=== PATIENT | female | born 1965 | race Caucasian/White ===

== ENCOUNTER 2016-10-13 19:32 | Emergency (ER) | payer BC ==
[2016-10-13] MEDS ORDERED: HYDROcodone/Acetaminophen 10/325 mg Tablet ONE (20:44)
[2016-10-13] MEDS ORDERED: Ibuprofen 800 MG TAB ONE (20:44)
[2016-10-13] MEDS ORDERED: Adacel (T-DAP) 0.5 ML VIAL ONE (20:54)
--- NOTE | 2016-10-13 22:43 | RAD ---
LUMBAR SPINE THREE VIEWS 10/13/16 No prior films are available for comparison. No major fractures were identified. There is some mild anterior wedging of the T11 and T12 vertebral bodies. It does not appear acute. Unless there is pain in that location, it probably can be taken as such. If there is, an MRI might be helpful to determi ne acute versus chronic. Degenerative changes are seen throughout the spine consisting of anterior osteophytes, worse near th e thoracolumbar junction. Disc space narrowing is present at L3-L4 and to a lesser extent L4-L5. A d egenerated disc is seen at the latter level. The SI joints are symmetrical. An incidental finding wa s a soft tissue calcification in the right buttocks region. IMPRESSION: 1. Scattered degenerative changes including evidence of degenerative disc disease. 2. Very slight wedging of T11 and T12, thought much more likely to be old than new, particularl y in view of the increased arthritic changes in this area compared to elsewhere. POS: HOME
--- NOTE | 2016-10-13 22:45 | RAD ---
CERVICAL SPINE THREE VIEWS 10/13/16 There is loss of the normal cervical lordosis which can be due to muscle spasm. The C1 to dens dista nce is normal and the soft tissues are normal in thickness. No fracture or dislocation as seen. Disc space narrowing is seen at C5-C6 along with some anterior osteophytes here. IMPRESSION: 1. Loss of lordosis, possibly due to spasm. 2. Mild degenerative changes, predominantly at the C5-C6 level. POS: HOME
== END 2016-10-13 20:57 | disposition home or self-care (01) ==
LOC: BURERS 19:32
DX: S16.1XXA Strain of muscle, fascia and tendon at neck level, initial encounter (principal); S39.012A Strain of muscle, fascia and tendon of lower back, initial encounter; S80.11XA Contusion of right lower leg, initial encounter; F32.9 Major depressive disorder, single episode, unspecified; Z79.899 Other long term (current) drug therapy; W18.30XA Fall on same level, unspecified, initial encounter
CPT/HCPCS: 72040; 72100; 90471; 90715

== ENCOUNTER 2017-03-10 01:47 | Emergency (ER) | payer BC ==
[2017-03-10] MEDS ORDERED: Ibuprofen 800 MG TAB ONE (02:13)
[2017-03-10 02:15] LABS: Bilirubin Negative (Negative); Blood, Urine Trace (Negative); Clarity Clear (Clear); Glucose, Urine (Dipstick) Negative (Negative); Leukocyte Small (Negative); Nitrite Negative (Negative); Protein, Urine (Dipstick) Negative (Neg-Trace); Specific Gravity, Urine 1.015 (1.005-1.030); Urobilinogen 0.2 mg/dL (0.2-1.0)
[2017-03-10 02:21] LABS: Bacteria/HPF Rare-Few HPF (None Seen); Squamous Epithelial 0-3 HPF (0-3)
[2017-03-10] MEDS ORDERED: Nitrofurantoin Monohyd/M-Cryst 100 MG CAP PO SCH (02:45)
[2017-03-10] MEDS ORDERED: cefTRIAXone\\ROCEPHIN 1 GM VIAL ONE (02:51)
--- NOTE | 2017-03-10 07:58 | RAD ---
PA AND LATERAL VIEWS CHEST: HISTORY: Fever. Chills. Bodyaches. FINDINGS: The heart size is normal. No focal areas of consolidation, pneumothorax, or pleural effusions are se en. No acute osseous abnormalities are identified. IMPRESSION: No radiographic evidence of acute cardiopulmonary process. POS: [facility]
== END 2017-03-10 03:15 | disposition home or self-care (01) ==
LOC: BURERS 01:47
DX: N12 Tubulo-interstitial nephritis, not specified as acute or chronic (principal); G40.909 Epilepsy, unspecified, not intractable, without status epilepticus; F32.9 Major depressive disorder, single episode, unspecified; Z79.899 Other long term (current) drug therapy
CPT/HCPCS: 71020; 81003; 81015; 87077; 87086; 87186; 87804; 96372; J0696